=== PATIENT | female | born 2000 | race African-American/Black ===

== ENCOUNTER 2023-04-13 12:54 | Outpatient (CLI) | payer OTHER, SELFPAY | END 2023-04-13 12:55 | disposition home or self-care (01) | LOC: ANHAUDIO 12:56 | DX: H90.3 Sensorineural hearing loss, bilateral (principal) | CPT/HCPCS: 92557; 92567 ==

== ENCOUNTER 2024-04-08 09:01 | Emergency (ER) | payer OTHER, SELFPAY ==
--- NOTE | ~2024-04-08 | XR_ITS ---
EXAMINATION: XR chest 2V 04/08/2024 12:10 INDICATION: Right-sided chest pain PROCEDURE: 2 view chest COMPARISON: No prior studies for comparison. FINDINGS: The lungs are clear. The cardiomediastinal silhouette is within normal limits. There are no pleural effusions. There is no pneumothorax suspected. IMPRESSION: 1: NO ACUTE CARDIOPULMONARY DISEASE. Reviewed, dictated and finalized at location B.
--- NOTE | 2024-04-08 09:07 | ECG_ITS ---
Test Date: 2024-04-08 09:10:12 Measurements Intervals [place] Rate: 72 P: -1 ID: [id number] QRS: 49 QRSD: 89 T: 31 QT: 353 QTc: 386 Interpretive Statements SINUS RHYTHM NORMAL ECG No previous ECG available for comparison Electronically Signed On 04-08-2024 09:13:57 CDT by Santino Lowery D.O.
[2024-04-08 09:08] VITALS: BP 117/68; PULSE 74; RESP 18; TEMP 36.1; O2SAT 100
[2024-04-08 09:14] VITALS: O2SAT 100
--- NOTE | 2024-04-08 09:17 | PC.NURSE ---
Pt states intermittent R sided chest pain that is reproducable with palpation but denies pain currently.
[2024-04-08 10:08] VITALS: BP 119/78; PULSE 65; RESP 18; O2SAT 100
--- NOTE | 2024-04-08 10:36 | ED.GENADULT ---
HPI - General Adult General Chief complaint: Chest Pain Stated complaint: CP Time Seen by Provider: 04/08/24 09:55 History of Present Illness HPI narrative: 24-year-old female presenting to the emergency department for evaluation right-sided chest pain has been ongoing for approximately 1 week. Patient states the pain is worsened with deep inspiration. Patient does describe the pain as sharp. Patient is on implanted control. Patient has no prior history of PE or DVT. Patient denies any cardiac history. Patient denies any associated shortness of breath. Patient states she has been having some intermittent headache and has been taking Tylenol and ibuprofen for pain control. Patient is unsure if this is be helping or worsening her right-sided chest pain. Related Data Allergies Allergy/AdvReac Type Severity Reaction Status Date / Time No Known Allergies Allergy Verified 04/08/24 09:13 Review of Systems Review of Systems: All systems reviewed & are unremarkable except as noted in HPI and below Exam Narrative: APPEARANCE: Well appearing, no pain, no distress, well-nourished. HEAD: normocephalic, atraumatic. EYES: PERRLA/EOMI, conjunctivae clear. NOSE: Normal no drainage EARS:TMS clear with good light reflex. THROAT: Pharynx clear, no exudate. NECK: Supple. No adenopathy, no masses. RESPIRATORY: Airway patent, respirations nonlabored. Clear to auscultation bilaterally, no rales, rhonchi, wheezing. CARDIOVASCULAR: Regular rate and rhythm without murmurs rubs or gallops. ABDOMINAL: Soft, nontender, nondistended, normal bowel sounds MUSCULOSKELETAL: Moves all extremities. Strength/ROM intact, No edema, No calf tenderness. NEURO: Alert. Cranial nerves II through XII intact. Good gait. Good coordination SKIN: Warm, dry. Normal Color Course Course Emergency Course: Patient felt improved treatment was comfortable the plan for discharge and close follow-up. Vital Signs Vital signs: Vital Signs Temperature 97.0 F L 04/08/24 09:08 Pulse Rate 74 04/08/24 09:08 Respiratory Rate 18 04/08/24 09:08 Blood Pressure 117/68 04/08/24 09:08 Pulse Oximetry 100 04/08/24 09:08 Temperature 97.4 F L 04/08/24 12:39 Pulse Rate 71 04/08/24 12:39 Respiratory Rate 16 04/08/24 12:39 Blood Pressure 112/70 04/08/24 12:39 Pulse Oximetry 100 04/08/24 12:39 Oxygen Delivery Room Air 04/08/24 09:14 Medical Decision Making MDM Narrative Medical decision making narrative: 24-year-old female presents to the emergency department for evaluation for intermittent right-sided chest pain. Patient was afebrile with no leukocytosis stable hemoglobin of 12. Patient has no acute abnormalities on her CMP patient's troponin was negative patient's UA was negative. Patient does not have an elevated D-dimer. Chest x-ray shows no acute cardiopulmonary abnormality. Low concern for pneumonia, pneumothorax or pulmonary embolism. Patient does describe a pleuritic type chest pain. Patient was encouraged close follow-up with primary care physician. Patient was advised to take ibuprofen for pain control. Patient was also updated on reasons to return to the emergency department. All questions concerns were addressed. Differential Diagnosis Differential Diagnosis: Pneumothorax, pneumonia, pulmonary embolism, COVID, RSV, influenza, pleurisy Vital Signs Vital Signs: Vital Signs Temperature 97.0 F L 04/08/24 09:08 Pulse Rate 74 04/08/24 09:08 Respiratory Rate 18 04/08/24 09:08 Blood Pressure 117/68 04/08/24 09:08 Pulse Oximetry 100 04/08/24 09:08 Temperature 97.4 F L 04/08/24 12:39 Pulse Rate 71 04/08/24 12:39 Respiratory Rate 16 04/08/24 12:39 Blood Pressure 112/70 04/08/24 12:39 Pulse Oximetry 100 04/08/24 12:39 Oxygen Delivery Room Air 04/08/24 09:14 Lab Data Lab results reviewed: Yes I reviewed the patient's lab results. 04/08/24 11:11 04/08/24 11:11
[2024-04-08 11:05] VITALS: BP 111/66; PULSE 70; RESP 12; O2SAT 100
[2024-04-08] MEDS: KETOROLAC 15 MG/ML VIAL (*BKC) IV PUSH (11:12)
[2024-04-08 11:16] LABS: Basophils Percent Auto 0.3 % (0.2-1.2); Eosinophils Percent Auto 0.5 % (0-4.4); Hematocrit 35.7 % (37.0-47.0); Lymphocytes Percent Auto 24.7 % (18.3-44.2); Mean Corpuscular HGB Conc 33.6 g/dl (32-36); Mean Corpuscular Hemoglobin 28.2 pg (26-34); Mean Platelet Volume 9.6 fl (7.4-10.4); Monocytes Absolute Auto 0.3 K/mm3 (0.1-0.6); Monocytes Percent Auto 7.7 % (2.6-8.5); Neutrophils Absolute Auto 2.4 K/mm3 (1.3-6.7); Neutrophils Percent Auto 66.8 % (45.5-73.1); Platelet Count Result 349 k/mm3 (150-375); Red Blood Count 4.25 M/mm3 (4.2-5.4); Red Cell Distribution Width 12.3 % (11.5-14.5); White Blood Count 3.6 K/mm3 (4.5-10.0)
[2024-04-08 11:27] LABS: Alanine Aminotransferase 18 U/L (6-35); Albumin Level 4.2 g/dL (3.5-5.1); Alkaline Phosphatase 51 U/L (38-126); Anion Gap 9 mmol/L (4-12); Aspartate Amino Transferase 23 U/L (14-36); Bilirubin,Total 0.3 mg/dL (0.2-1.3); Blood Urea Nitrogen 12 mg/dL (7-17); Carbon Dioxide 25 mmol/L (22-30); Chloride 104 mmol/L (98-107); Estimated CRCL calculation 92 ml/min; Estimated Glomerular Filt Rate > 60; Glucose 88 mg/dL (65-110); Potassium 3.9 mmol/L (3.4-5.0); Sodium 138 mmol/L (137-145)
[2024-04-08 11:31] LABS: D Dimer < 0.27 ug/mL (<0.48)
[2024-04-08 11:32] LABS: Add Urine Microscopic? NO; Appearance Urine Clear (Clear); Bilirubin Urine Negative (Negative); Blood Urine Negative (Negative); Color Urine Yellow (Yellow); Glucose Urine UA Negative (Negative); Ketones Urine Negative (Negative); Leukocyte Esterase Ur Negative LEU/UL (Negative); Nitrate Urine Negative (Negative); Protein Urine Negative (Negative); Specific Grav Ur 1.011 (1.001-1.035); Urobilinogen Urine 0.2 mg/dL (<2.0); pH Urine 7.5 (5.0-9.0)
[2024-04-08 11:37] LABS: Troponin I < 0.012 ng/mL (0.000-0.034)
[2024-04-08 11:52] LABS: Influenza A QL RT-PCR Negative (Negative); Influenza B QL RT-PCR Negative (Negative); RSV RNA, RT-PCR Negative (Negative); SARS-CoV-2 RNA PCR Negative (Negative)
[2024-04-08 12:39] VITALS: BP 112/70; PULSE 71; RESP 16; TEMP 36.3; O2SAT 100
[2024-04-10 14:27] LABS: BEDSIDEPREGUCG Negative (Negative)
== END 2024-04-08 12:40 | disposition home or self-care (01) ==
PROVIDERS: Emergency Medicine; Emergency Provider Emergency Medicine
DX: R07.89 Other chest pain (principal); Z20.822 Contact with and (suspected) exposure to COVID-19
CPT/HCPCS: 36415; 71046; 80053; 81003; 81025; 84484; 85025; 85380; 87637; 93005; 96374; 99284; J1885